=== PATIENT | male | born 1960 | race Caucasian/White ===

== ENCOUNTER → 2018-08-24 17:00 | Outpatient (CLI) | payer OTHER, SELFPAY ==
--- NOTE | 2018-08-24 | DI.MRI.S_ITS ---
PROCEDURE: MR CERVICAL SPINE WO CON INDICATIONS: CERVICALGIA PAIN IN RIGHT SHOULDER TECHNIQUE: Noncontrast sagittal T1 spin echo and T2 fast spin echo, sagittal STIR, foraminal oblique sagittal T2 fast spin echo, and axial gradient echo or T2 fast spin echo through the cervical spine. COMPARISON: [facility], , CERVICAL SPINE 4 VIEWS, 07/06/2010, 12:27. FINDINGS: Image quality: Limited by patient motion artifact. Alignment and Curvature: There is normal bony alignment. Bone Marrow: Reactive endplate changes noted adjacent to the C4-C5, C5-C6 and C6-C7 discs. Spinal Cord: Visualized spinal cord has normal size and signal. No cerebellar tonsillar herniation. Paraspinous Soft Tissues: No paravertebral masses. Prevertebral soft tissues are normal in thickness. C2-C3: Loss of disc signal. Mild, diffuse disc bulge and possible ossification of the posterior longitudinal ligament. Mild narrowing of the central canal. No neural foraminal narrowing. No neural impingement. C3-C4: Loss of disc signal and slight loss of disc height. Mild, diffuse disc bulge. Possible ossification of the posterior longitudinal ligament. Mild bilateral facet hypertrophy. Moderate narrowing of the central canal. Mild left neural foraminal narrowing. No neural impingement. C4-C5: Loss of disc signal and slight loss of disc height. Mild, diffuse disc bulge. Right central disc protrusion. Mild narrowing of the central canal. Mild bilateral facet hypertrophy. Moderate bilateral neural foraminal narrowing. No neural impingement. C5-C6: Loss of disc signal and height. Moderate, diffuse disc bulge. Severe narrowing of the central canal. Mild bilateral facet hypertrophy. Moderate right and mild left uncovertebral joint hypertrophy. Severe bilateral neural foraminal narrowing with flattening deformity of the exiting C6 nerve roots. C6-C7: Loss of disc signal and height. Moderate, diffuse disc bulge. Moderate narrowing of the central canal. Mild bilateral facet hypertrophy. Moderate bilateral neural foraminal narrowing. No neural impingement. C7-T1: Normal appearance. IMPRESSION: 1. Multilevel degenerative disc disease. 2. Multilevel facet arthropathy and uncovertebral joint hypertrophy. 3. Severe C5-C6 central canal narrowing with slight flattening deformity of the cervical spinal cord. Moderate C3-C4 and C6-C7 central canal narrowing. Mild C2-C3 and C4-C5 central canal narrowing. 4. Severe bilateral C5-C6 neural foraminal narrowing. Moderate bilateral C4-C5 and C6-C7 neural foraminal narrowing. Mild left C3-C4 neural foraminal narrowing. 5. Flattening deformity of the exiting bilateral C6 nerve root secondary to neural foraminal narrowing. Dictated by: Jennifer Pyle MD, PhD on 08/25/2018 at 20:24 Approved by: Jennifer Pyle MD, PhD on 08/25/2018 at 20:30
--- NOTE | 2018-08-24 18:29 | DI.MRI.S_ITS ---
PROCEDURE: MR SHOULDER RT WO CON INDICATIONS: CERVICALGIA PAIN IN RIGHT SHOULDER TECHNIQUE: Noncontrast oblique coronal T2 fast spin echo with fat saturation, oblique sagittal T1 spin echo and T2 fast spin echo with fat saturation, axial T1 spin echo and T2 fast spin echo with fat saturation through the shoulder. COMPARISON: [facility], MR, SHOULDER WITHOUT CONTRAST, 10/17/2017, 19:57. FINDINGS: Image quality: Excellent. Rotator cuff: There is a moderate grade, partial thickness tear of the bursal surface of the supraspinatus tendon which is stable compared to prior exam obtained 10/17/17. There is a small, partial thickness, intermediate grade tear at the insertion of the subscapularis tendon. The infraspinatus tendon appears intact throughout. Sagittal images demonstrate no muscle atrophy. Bones and bursae: No bone marrow contusions or fractures. Moderate acromioclavicular joint degeneration. The acromion demonstrates conventional anatomy, without an os acromiale. Fluid noted in the subacromial/subdeltoid bursa compatible with a mild bursitis. Capsule and soft tissues: In the absence of intra-articular contrast, the labrum and glenohumeral ligaments appear intact. The superior-anterior labrum is hypoplastic and there is cord like thickening of the middle glenohumeral ligament compatible with [place] complex. The long head of the biceps tendon demonstrates normal location and morphology. The rotator interval is thickened and obscuring the coracohumeral ligament. IMPRESSION: 1. Intermediate grade, partial, bursal surface tear of the supraspinatus tendon stable compared to 10/17/17. 2. Intermediate grade, partial, undersurface tear of the subscapularis tendon at the humeral attachment which has developed in the interval since prior MRI examination. 3. Moderate acromioclavicular joint osteoarthritis. 4. Mild subacromial/subdeltoid bursitis. 5. Rotator interval fibrosis and possible axillary recess joint capsule thickening concerning for adhesive capsulitis. Please correlate with clinical findings. Dictated by: Jennifer Pyle MD, PhD on 08/25/2018 at 23:08 Approved by: Jennifer Pyle MD, PhD on 08/25/2018 at 23:39
== END ==
PROVIDERS: Family Provider Family Medicine Geriatric Medicine; PCP Family Medicine Geriatric Medicine; Visit Provider Family Medicine Geriatric Medicine
DX: M50.31 Other cervical disc degeneration, high cervical region (principal); M47.812 Spondylosis without myelopathy or radiculopathy, cervical region; M48.02 Spinal stenosis, cervical region; M75.111 Incomplete rotator cuff tear or rupture of right shoulder, not specified as traumatic; M19.011 Primary osteoarthritis, right shoulder; M25.511 Pain in right shoulder; M75.51 Bursitis of right shoulder
CPT/HCPCS: 72141; 73221

== ENCOUNTER → 2018-11-29 11:51 | Outpatient (CLI) | payer OTHER, SELFPAY | PROVIDERS: PCP Family Medicine Geriatric Medicine; Visit Provider Family Medicine Geriatric Medicine | DX: R20.2 Paresthesia of skin (principal) | CPT/HCPCS: 95885; 95886; 95912 ==